=== PATIENT | female | born 1955 | race Caucasian/White ===

== ENCOUNTER → 2024-01-28 11:05 | Outpatient (REF) | payer BC, SELFPAY | LOC: RCS 11:05 | PROVIDERS: ATTENDING PHYSICIAN Internal Medicine Cardiovascular Disease; FAMILY PHYSICIAN Internal Medicine | DX: I10 Essential (primary) hypertension (principal); R01.1 Cardiac murmur, unspecified | CPT/HCPCS: 93306 ==